=== PATIENT | male | born 1965 | race Caucasian/White ===

== ENCOUNTER → 2017-06-14 15:45 | Outpatient (CLI) | payer OTHER, SELFPAY | PROVIDERS: Family Provider Family Medicine; PCP Family Medicine; Visit Provider Otolaryngology | DX: J32.9 Chronic sinusitis, unspecified (principal) | CPT/HCPCS: 87070; 87205 ==

== ENCOUNTER → 2017-06-21 12:43 | Outpatient (CLI) | payer OTHER, SELFPAY ==
--- NOTE | 2017-06-21 12:48 | CT_ITS ---
STUDY: CT MAXILLOFACIAL SINUSES REASON FOR EXAM: Female, 52 years old. SINUSITIS. THYROIDECTOMY, THYROGLOSSAL CYST REMOVAL. RADIATION DOSAGE (If Supplied By Facility): CTDIvol = ( 33.06 ) mGy, DLP = ( 714.02 ) mGycm TECHNIQUE: The patient was scanned in a multi detector CT scanner. High resolution axial imaging was performed without the administration of intravenous contrast material. Sagittal and coronal images were reconstructed. Individualized dose optimization techniques were used for this CT. COMPARISON: None. FINDINGS: FRONTAL SINUSES: Normal aeration, without mucosal inflammatory disease. ETHMOIDAL SINUSES: Normal aeration, without mucosal inflammatory disease. MAXILLARY SINUSES: There is minimal mucosal thickening of the left maxillary sinus with retention cyst. SPHENOIDAL SINUSES: There is minimal opacification of the right sphenoid sinus. There is patency of the bilateral maxillary infundibuli with normal uncinate processes, ethmoid bullae, and hiatus semilunaris. Normal bilateral middle turbinates. Normal bilateral inferior turbinates. Normal midline nasal septum. There is patency of the bilateral nasal airways. The visualized osseous structures are normal. The visualized bilateral orbital contents are normal. There is fluid/soft tissue of the left mastoid and middle ear. There are no erosive bony changes. CT/Sinus/Facial Bone IMPRESSION: Minimal sinus disease. Left otomastoiditis. Electronically Signed: Dai oRque MD at 12:41 EDT Tel , Service support ,
== END ==
PROVIDERS: Family Provider Family Medicine; PCP Family Medicine; Visit Provider Otolaryngology
DX: J32.9 Chronic sinusitis, unspecified (principal)
CPT/HCPCS: 70486

== ENCOUNTER 2018-07-01 08:11 | Emergency (ER) | payer OTHER, SELFPAY ==
[2018-07-01 08:13] VITALS: BP 157/81; PULSE 82; RESP 16; TEMP 36.4; O2SAT 97; BMI 39.6
--- NOTE | 2018-07-01 08:21 | EKG12_ITS ---
Test Reason : PALPITATIONS Blood Pressure : / mmHG Vent. Rate : 076 BPM Atrial Rate : 076 BPM P-R Int : 138 ms QRS Dur : 092 ms QT Int : 366 ms P-R-T Axes : 031 028 033 degrees QTc Int : 411 ms Normal sinus rhythm Normal ECG Confirmed by ROBERT CHAPMAN ([id number]), photograph editor MARILEE GAGE ([id number]) on 07/04/2018 11:15:24 AM Referred By: DC Confirmed By:ROBERT CHAPMAN
--- NOTE | 2018-07-01 08:24 | ED.VISSUMM ---
- ER Visit Summary Date of Service: 07/01/18 Chief Complaint: Palpitations History of Present Illness: The patient is a 53 F with intermittent palpitations over the last 4 days. They seem to be getting more frequent. Nothing seems to bring them on or make them worse. She had them randomly in the past and infrequently, and she attributed them to her thyroid disease. She came in today because they are getting more frequent. Patient is not currently experiencing any palpitations. No other associated symptoms currently. No history of heart or lung disease. No history of blood clots. Physical Examination: Afebrile and vital signs unremarkable. Alert and oriented. No acute distress. Heart regular rate and rhythm. Lungs clear. Skin normal. Calves soft and supple. Pulses strong and equal. Test Results: EKG showed sinus rhythm at a rate of 76. No ectopy or other dysrhythmias. Blood work and chest x-ray pending. Emergency Department Course and Treatment: Patient presents with palpitations. No other concerning features. She was placed on a monitor. Will perform a workup and monitor. Workup was unremarkable. I spoke with Dr. Wolfe. Will order a 24-hour monitor and she will follow-up in the office. Treatment Plan: As above Disposition: Discharge Impression: 1. Palpitations This note was generated with [employer] dictation software. It may contain incorrect words, spelling, and punctuation that were not noted in review of the chart prior to signing ED Disposition - Plan for ED Patient: Referrals: Douglas Valdez MD [Primary Care Provider] -
--- NOTE | 2018-07-01 08:25 | RAD_ITS ---
STUDY: X-RAY CHEST REASON FOR EXAM: Female, 53 years old. Palpitations. History of asthma. TECHNIQUE: Single AP portable view of the chest. COMPARISON: None. FINDINGS: EKG electrodes are seen. The lungs are clear and expanded. There is no demonstrated pleural abnormality. Normal size heart. Normal mediastinum and kalie. Normal visualized pulmonary arteries. Normal visualized aortic arch and descending thoracic aorta. Normal visualized thoracic spine. Normal visualized ribs, clavicles, and shoulders. There is no demonstrated abnormality of the visualized soft tissue structures of the upper abdomen. RAD/Chest 1 View (Portable) IMPRESSION: Normal x-ray examination of the chest. Electronically Signed: Armando Garcia, at 9:04 EDT , Service support ,
[2018-07-01 08:47] LABS: Absolute Lymphocyte Count 1.98 X10^3/ul (0.83-4.51); Absolute Neutrophil Count 3.7 X10^3/uL (2.0-7.7); Basophil# 0.05 X10^3/uL; Basophil% 0.8 % (0-1); Eosinophil# 0.37 X10^3/uL; Eosinophils% 5.7 % (0-5); Hematocrit 45.8 % (37-47); Hemoglobin 15.1 g/dl (12.0-15.0); Lymphocyte # 1.98 X10^3/ul (4.0); Lymphocyte % 30.6 % (19-41); Mean Corpuscular Hgb 29.1 pg (27.0-32.0); Mean Corpuscular Volume 88.2 fL (81-99); Mean Platelet Vol. 10.4 fl (6.2-12.0); Monocyte# 0.41 X10^3/uL; Monocyte% 6.3 % (0-10); Neutrophil # 3.66 X10^3/uL (2.7-7.7); Neutrophil % 56.4 % (47-70); Platelet Count 239 K/mm3 (150-450); RBC Distribution Width CV 12.7 % (11.6-14.6); RBC Distribution Width SD 40.5 fl (35.1-43.9); Red Blood Count 5.19 M/mm3 (4.2-5.4); White Blood Count 6.5 K/mm3 (4.4-11.0)
[2018-07-01 08:52] LABS: POSITIVE COUNT NO; POSITIVE DIFFERENTIAL NO; POSITIVE MORPHOLOGY NO
[2018-07-01 09:14] LABS: Anion Gap 7 (5-15); BUN 27 mg/dL (7-18); BUN/Creat Ratio 28.4 RATIO (10-20); Calcium,Total 9.2 mg/dL (8.5-10.1); Chloride 108 mmol/L (98-107); Creatinine, Serum 0.95 mg/dL (0.55-1.02); EST Glomerular Filtration Rate 66 mL/min (>60); Est Glom Filt Rate - Afr Amer 80 mL/min (>60); Estimated Creatinine Clearance 55.41 ml/min; Glucose 68 mg/dL (74-106); Potassium 3.5 mmol/L (3.5-5.1); Sodium Level 143 mmol/L (136-145); Thyroid Stim Hormone (TSH) 0.43 uIU/mL (0.358-3.74)
--- NOTE | 2018-07-01 10:01 | ED.DEP ---
ED Disposition - Plan for ED Patient: Instructions: ED Palpitations Referrals: Chato Wolfe MD [STAFF PHYSICIAN] - Additional Instructions: call today to schedule follow up appt with cardiology
[2018-07-01 10:33] VITALS: BP 126/78; PULSE 64; RESP 16; O2SAT 98
== END 2018-07-01 11:05 | disposition home or self-care (01) ==
PROVIDERS: Emergency Provider Emergency Medicine; Family Provider Family Medicine; PCP Family Medicine
DX: R00.2 Palpitations (principal); E07.9 Disorder of thyroid, unspecified; Z79.899 Other long term (current) drug therapy
CPT/HCPCS: 71045; 80048; 84443; 84484; 85025; 93005; 99284; J7050

== ENCOUNTER → 2018-07-01 10:36 | Outpatient (CLI) | payer OTHER, SELFPAY ==
[2018-07-01 08:13] VITALS: BMI 39.6
== END ==
PROVIDERS: Family Provider Family Medicine; PCP Family Medicine; Referring Provider Internal Medicine Cardiovascular Disease; Visit Provider Emergency Medicine
DX: R00.2 Palpitations (principal)
CPT/HCPCS: 93225; 93226

== ENCOUNTER 2018-11-19 15:30 | Outpatient (RCR) | payer OTHER, SELFPAY ==
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
--- NOTE | 2019-02-05 14:40 | HP.PTDCSUM_ITS ---
HP - PT D/C Summary It has been my pleasure to treat MITUL DUDLEY under orders from Douglas Valdez MD, for the diagnosis of LEFT KNEE PAIN for a total of 11 visit(s). Discharge Date: 11/19/18 Please see the following information for a summary of their discharge status. - Subjective Subjective: PATIENT REPORTS SHE CAN WALK BETTER AND FASTER SINCE STARTING PT. REPORTS SHE CAN DO STAIRS BETTER BUT CAN'T CARRY THINGS UP AND DOWN STAIRS. CAN GET IN AND OUT OF CAR AND SHOWER ARE EASIER BUT STILL HAS TO HELP LEG SOMETIMES. CAN'T KNEEL ON LEFT KNEE. PATIENT REPORTS SHE LOVES THE WATER. STATES SHE CAN CONTINUE THE EX'S IN HER POOL AT HOME. ALSO DOING HEP ON LAND. BACK TO WORK. STATES SHE HAS BEEN DOING A LOT OF WAKLING THE LAST FEW WEEKS ALSO. - Pain L Knee Pain Intensity (Out of 10): 2 - Overall Improvement % Improvement: 75 - Objective Objective/Function: INDEP AND SAFE GAIT NOW WITH GOOD CADANCE AND GOOD INITIATION OF GAIT AFTER SITTING. STRENGTH: LLE: HIP 4/5, KNEE EXT 4/5, KNEE FLEX 4-/5 IN MID-RANGE, ANKLE 5/5. LEFT KNEE ROM IN SUPINE WITH A HEEL SLIDE IS FULL EXT TO 109 DEG FLEX HOWEVER SHE HYPEREXTENDS RIGHT KNEE AND IS UNABLE ON LEFT. PATIENT'S SWELLING HAS IMPROVED AND APPEARS TO BE MINIMAL NOW WHEN CARED TO THE RIGHT. RECOMMEND PHYSICIAN FOLLOW UP AND CONTINUED CURRENT INDEP WATER EX AND HEP AT THIS TIME. PATIENT MAY BENEFIT FROM CONTINUED PT FOR PROGRESSION IN WATER AND TO LAND TOLERATED IF NOT A SURGICAL CANDIDATE. - Goals Goal 1:: INDEP AND SAFE GAIT ON ALL SURFACES WITH LEAST ASSISTIVE DEVICE Goal Progress: Goal Met Goal 2:: INCREASE FUNCTIONAL ROM OF LEFT KNEE Goal Progress: Goal Met Goal 3:: INCREASE FUNCTIONAL STRENGTH OF LLE Goal Progress: Goal Met Goal 4:: INDEP HEP FOR CONTINUED IMPROVEMENT ONCE FORMAL PHYSICAL THERAPY CONC LUDES. Goal Progress: Goal Met - Plan Plan: D/C AT THIS TIME ABOVE. PATIENT AGREEABLE. - D/C Information If there are questions or concerns regarding this patient's physical therapy, please feel free to call me at [phone]. Thank you for the referral of this patient. Sincerely, Catalina Chakraborty, PT, Cert MDT
== END 2018-11-19 19:00 | disposition home or self-care (01) ==
LOC: PT 15:30
PROVIDERS: Family Provider Family Medicine; PCP Family Medicine; Referring Provider Family Medicine; Visit Provider Family Medicine
DX: M25.562 Pain in left knee (principal)
CPT/HCPCS: 97113; 97116; 97161; 97530

== ENCOUNTER → 2019-06-11 | Outpatient (CLI) | payer OTHER, SELFPAY | END | disposition home or self-care (01) | LOC: LABSPEC 16:08 | PROVIDERS: PCP Family Medicine; Referring Provider Otolaryngology; Visit Provider Otolaryngology | DX: H66.41 Suppurative otitis media, unspecified, right ear (principal) | CPT/HCPCS: 87070; 87075; 87076; 87077; 87186; 87205 ==

== ENCOUNTER 2019-08-17 09:32 | Day surgery (SDC) | payer OTHER, SELFPAY ==
[2019-08-17 09:59] VITALS: BP 131/89; PULSE 85; RESP 16; TEMP 36.4; O2SAT 98; BMI 43.9
[2019-08-17] MEDS: Lactated Ringers 1,000 ML 100 ML IV (10:12)
--- NOTE | 2019-08-17 10:48 | DCINST_ITS ---
Discharge Diet: No Restrictions Discharge Activity: Return to Normal Activity Additional Activity Instructions:: Ear drops 5 drops left ear twice a day for 2 days. Allergies/Adverse Reactions: Allergies codeine Allergy (Verified 08/17/19 09:59) Vomiting Sulfa (Sulfonamide Antibiotics) Allergy (Verified 08/17/19 09:59) Hives Medications to take at Discharge DiphenhydrAMINE [Benadryl] 50 mg PO QHS PRN PRN 07/01/18 Fexofenadine/Pseudoephedrine [Nica-D 12 Hour Tablet] 1 each PO DAILY 07/01/18 Levothyroxine [Synthroid] 125 mcg PO DAILY 07/01/18 Valsartan 160 mg PO DAILY 07/01/18 Albuterol IH (ProAir) [Proair Hfa (SP)Vent Pts] 1 - 2 puff INHALATION Q6H PRN PRN 08/14/19 Primary Care Physician: Gold Ramos MD [Primary Care Provider] - Test Results: Test results from this visit will be discussed in further detail at your follow- up appointment, if applicable.
--- NOTE | 2019-08-17 11:05 | PCM.OPRPT ---
Report of Operation Date of Procedure: 08/17/19 Pre-Operative Diagnosis: left chronic serous otitis media Post-Operative Diagnosis: same Surgery/Procedure Performed:: left myringotomy with t tube insertion Description of Surgical Findings:: clear fluid in the middle ear. Old tube in the middle ear removed Type of Anesthesia:: General Anesthesiologist: Lexx Ronquillo Specimen's removed: none Estimated Blood Loss (mL): minimal Description of Procedure: The patient was taken to the operating room on 08/17/19. The patient was placed in the supine position on the operating room table. The patient was given sufficient general anesthesia. The operating microscope was used throughout the entire case. A speculum was inserted into the patient's left ear. Cerumen was removed using a curette. An incision was placed in the the tympanic membrane. An old Rafa Bobin tube was removed from the middle ear without difficulty. Fluid was suctioned from the middle ear and collected in a Lukens trap and eventually sent for beta 2 transferrin. A t tube was placed and deployed without difficulty. Antibiotic drops were instilled into the patient's ear. The patient was then awoken. She was brought to the recovery room in stable condition. Blood loss minimal replacement none sponge needle and instrument counts correct at the end of the procedure.
[2019-08-17 11:11] VITALS: BP 126/63; BP 131/89; PULSE 91; RESP 18; TEMP 36.3; O2SAT 94
[2019-08-17 11:15] VITALS: BP 129/71; BP 131/89; PULSE 83; RESP 18; O2SAT 94
[2019-08-17 11:28] VITALS: BP 124/79; BP 131/89; PULSE 84; RESP 18; TEMP 36.3; O2SAT 95
[2019-08-17 11:54] VITALS: BP 131/89
== END 2019-08-17 11:56 | disposition home or self-care (01) ==
LOC: SDC 09:33 → AC 09:34
PROVIDERS: PCP Internal Medicine; Referring Provider Otolaryngology; Visit Provider Otolaryngology
PROC: (CPT 69424; principal; 2019-08-17 11:00)
DX: H65.22 Chronic serous otitis media, left ear (principal); I10 Essential (primary) hypertension; J45.909 Unspecified asthma, uncomplicated; K21.9 Gastro-esophageal reflux disease without esophagitis; E07.9 Disorder of thyroid, unspecified; E78.00 Pure hypercholesterolemia, unspecified; Z79.51 Long term (current) use of inhaled steroids; Z79.899 Other long term (current) drug therapy; Z11.59 Encounter for screening for other viral diseases
CPT/HCPCS: 00126; 69424; 69436; 87635; G2023; J7120; J2405; U0002